=== PATIENT | female | born 1965 | race Caucasian/White ===

== ENCOUNTER 2023-05-11 06:47 | Outpatient (CLI) | payer OTHER, SELFPAY ==
--- NOTE | 2023-05-11 07:15 | MR_ITS ---
[address] [address] Phone:?[phone] Fax:?[phone] Referring Physician Information: WINSTON Jha [address] [facility] [address] Phone:?[phone] Fax:?[phone] Patient:Brenna Tucker D.O.B:?1965 Sex:?Female Phone:? [facility] MRN:[id number] Exam Date:?05/11/2023 EXAM: MRI of the LEFT KNEE, without contrast CLINICAL INFORMATION: Female, 57 years old, with medial left knee pain. INDICATION: Evaluate knee pain. PRIOR SURGERY: None reported. PLAIN FILMS: None available. COMPARISONS: No prior MRIs available. TECHNICAL INFORMATION: Using a 1.5T MR scanner and a localizing surface coil: sagittals: PD, PDFS coronals: PD, T2FS axials: PD, PDFS SEDATION: None CONTRAST: None FINDINGS: Knee joint: Effusion: Physiologic left knee effusion. Popliteal cyst: Tiny, unruptured popliteal (Slater's) cyst. Loose bodies: None. Subcutaneous and extra-articular soft tissues: Unremarkable. Ligaments: ACL: Mild thickening and abnormal signal is present throughout the ACL, without ACL tear (coronal STIR series 8 images 16-20). PCL: Intact PCL, without acute or chronic injury. MCL: Intact MCL superficial and deep layers, without injury. LCL: Intact LCL, without injury. Posterolateral corner: No posterolateral corner soft tissue injury. Popliteus, biceps femoris, iliotibial band, popliteofibular ligament and lateral gastrocnemius are intact. Posteromedial corner: No posteromedial corner soft tissue injury. Semimembranosus, pes anserine tendons and posterior oblique ligament are without injury, tendinopathy or bursitis. Extensor mechanism: Patellar tendon: Intact, without tendinopathy. Quadriceps tendon: Intact, without tendinopathy. Retinacula: Medial and lateral retinacula are intact. Fat pads: Moderate edema-like signal is present throughout the suprapatellar fat pad (sagittal PDFS series 6 images 15-21). Unremarkable femoral and infrapatellar Hoffa's fat pads. Medial compartment: Medial meniscus: No articular surface, meniscosynovial junction or root tear. No displacement, extrusion or parameniscal cyst. Medial femoral condyle: No chondromalacia or osteochondral abnormality. Medial tibial plateau: No chondromalacia or osteochondral abnormality. Lateral compartment: Lateral meniscus: No articular surface, meniscosynovial junction or root tear. No displacement, extrusion or parameniscal cyst. Lateral femoral condyle: No chondromalacia or osteochondral abnormality. Lateral tibial plateau: No chondromalacia or osteochondral abnormality. Patellofemoral joint: Patella: No chondromalacia or osteochondral abnormality. Trochlea: No chondromalacia or osteochondral abnormality. Proximal tibiofibular joint: Unremarkable, without evidence of ligament sprain injury, joint effusion or adjacent marrow edema. Bones: Moderate-marked edema is present in the periphery of the medial femoral condyle, without evidence of a fracture (sagittal PDFS series 6 image 9 and coronal STIR series 8 image 16). IMPRESSION: 1. Moderate-marked contusion versus low-grade stress changes involving the periphery of the medial femoral condyle, without evidence of a fracture. 2. Grade 1 sprain of the ACL. No cruciate or collateral ligament tear. 3. Tiny, unruptured popliteal (Slater's) cyst. No knee joint effusion. 4. No medial or lateral meniscal tear. 5. No PCL, MCL, or LCL sprain/tear. 6. No chondromalacia or osteochondral lesion/defect. BC Electronically signed on 05/11/2023 12:53:00 PM by Priyank Gunter M.D.
== END 2023-05-11 06:48 | disposition home or self-care (01) ==
PROVIDERS: PCP Family Medicine; Visit Provider Physician Assistant Surgical
DX: M25.562 Pain in left knee (principal); S83.512A Sprain of anterior cruciate ligament of left knee, initial encounter; S86.912A Strain of unspecified muscle(s) and tendon(s) at lower leg level, left leg, initial encounter
CPT/HCPCS: 73721

== ENCOUNTER 2023-05-25 15:15 | Outpatient (RCR) | payer OTHER, SELFPAY | END 2023-05-31 09:34 | disposition home or self-care (01) | PROVIDERS: PCP Family Medicine; Visit Provider Physician Assistant Surgical | DX: S76.112A Strain of left quadriceps muscle, fascia and tendon, initial encounter (principal); M25.562 Pain in left knee; R26.2 Difficulty in walking, not elsewhere classified; Z51.89 Encounter for other specified aftercare | CPT/HCPCS: 97110; 97161 ==

== ENCOUNTER 2023-08-10 08:53 | Outpatient (CLI) | payer OTHER, SELFPAY ==
--- NOTE | 2023-08-10 09:15 | FL_ITS ---
Patient: AMELIA IQBAL Facility:?[facility] Patient ID:?[id number] Site Patient ID:?[id number]. Site :?1965 Study:?XRay-Hip Right ARTHROGRAM (DR AMOS TO READ)-08/10/2023 10:29:04 AM Ordering Physician:WALLY Final Report: Indication: Right hip pain Procedure : Informed consent was obtained. The site was marked. Time-out was performed. The skin of the right hip was cleansed with ChloraPrep. A sterile drape was placed. 8 cc of 1 percent lidocaine was administered for superficial anesthesia. Subsequently a 22 gauge spinal needle was introduced into the right hip joint under intermittent fluoroscopic guidance. Injection of 2 cc nonionic Omnipaque 240 contrast confirmed intra-articular location. Subsequently 11 cc of dilute gadolinium were injected. The needle was removed and hemostasis achieved with direct pressure. A dressing was placed. The patient tolerated the procedure well without immediate complication and was immediately sent to MRI for imaging. Total fluoroscopy time 37 seconds. Impression: Successful fluoroscopically guided right hip arthrogram for MRI. Dictated by Sergei Amos MD @ 08/10/2023 10:45:43 AM Signed by:?Sergei Amos MD @08/10/2023 10:45:43 AM (Electronic Signature)
--- NOTE | 2023-08-10 10:15 | MR_ITS ---
[address] [address] Phone:?[phone] Fax:?[phone] Referring Physician Information: Dez Davis M.D. [address] [facility] [address] Phone:?[phone] Fax:?[phone] Patient:?Mariama Tucker D.O.B:?1965 Sex:?Female Phone:?[phone] [facility] MRN:?[id number] Exam Date:?08/10/2023 EXAM: MR ARTHROGRAM OF THE RIGHT HIP CLINICAL INFORMATION: The patient is a 58-year-old with right hip pain. PRIOR SURGERY: None reported. COMPARISON STUDIES: There are no prior studies available for comparison. TECHNICAL INFORMATION: Exam performed after fluoroscopically-guided gadolinium arthrography of the right hip joint at [facility], reported separately. Using a 1.5T MR scanner: 3.5 mm?coronals: PD, T2, T1FS 3.5 mm?sagittals: PD, T2, T1FS 3.0 mm?axial obliques: PD 4.0 mm?axials: T2FS 4.0 mm?coronals of pelvis: T1, STIR FINDINGS: Hip joint: Contrast material normally fills the right hip joint space. Articular Cartilage: The articular cartilage of the femoral head and acetabulum is preserved. No chondral defects or unstable chondral segments are identified. No intraarticular loose bodies are identified. Labrum: The acetabular labrum is intact. There is no evidence for paralabral ganglion cyst formation. Proximal femur: The bone marrow signal of the proximal femoral head, femoral neck and intertrochanteric region is normal in appearance without evidence of structural abnormality or lesion of abnormal signal intensity. There is no evidence of avascular necrosis, fracture or stress injury. No definite cam lesions are identified. There are no fibrocystic osseous lesions. Acetabulum: The acetabulum is intact and normal in appearance. There are no periacetabular ossicles or subcortical marrow edema. There is no definite retroversion or osseous over coverage. There are no definite abnormalities in acetabular morphology. The ligamentum teres is intact. Myotendinous Structures: The greater trochanteric attachments of the gluteus medius and gluteus minimus are normal. The common hamstring tendon origin is normal. The adductors and flexors appear unremarkable. Bursae: There is no evidence of iliopsoas, greater trochanteric or ischial bursal inflammation. Pelvic soft tissues: The soft tissues of the pelvis appear otherwise preserved. There is no evidence of soft tissue mass or adenopathy. No acute intrapelvic abnormalities are seen. Pelvic osseous structures: Large [id number] coronal survey images show no evidence of a pelvic fracture or demonstrable stress injury. The sacrum and SI joints appear normal. The symphysis pubis is normal in appearance. Lumbosacral junction: Degenerative disc dehydration of the lumbosacral junction can be seen. CONCLUSION: 1. No acute bony abnormalities of the right hip or pelvis can be seen. There is no evidence for stress injury. 2. No chondral defects along the weightbearing surfaces of the right hip are present. 3. No definite evidence for well-defined tearing of the right acetabular labrum can be seen. 4. No musculotendinous abnormalities about the right hip or pelvis are seen. 5. No abnormal bursal fluid collections are present. AEC Electronically signed on 08/13/2023 10:55:00 AM by Miguel Hyde M.D.
== END 2023-08-10 08:54 | disposition home or self-care (01) ==
LOC: RAD 08:54
PROVIDERS: PCP Family Medicine; Visit Provider Family Medicine
DX: M25.551 Pain in right hip (principal); M25.851 Other specified joint disorders, right hip; R10.31 Right lower quadrant pain
CPT/HCPCS: 27093; 73525; 73722; 77002; A9575; Q9966

== ENCOUNTER 2023-08-26 05:03 | Emergency (ER) | payer OTHER, SELFPAY ==
[2023-08-26 05:10] VITALS: BP 131/90; PULSE 68; RESP 18; TEMP 36.8; O2SAT 99; BMI 19.9
[2023-08-26 05:29] LABS: Appearance Urine Clear (Clear); Bilirubin Urine Negative (Negative); Blood Urine Negative (Negative); Color Urine Yellow (Yellow); Glucose Urine Negative (Negative); Ketones Urine Negative (Negative); Leukocyte Esterase Urine Negative (Negative); Nitrite Urine Negative (Negative); Protein Urine Negative (Negative); Specific Gravity Urine 1.015 (1.000-1.030); Urobilinogen Urine 0.2 (0.2-1.0)
[2023-08-26 05:34] LABS: RBC Urine 0-2 (0-2); WBC Urine 0-2 (0-5)
[2023-08-26 05:35] LABS: Squamous Epithelial Cell Urine Few (None-Few)
--- NOTE | 2023-08-26 05:37 | CT_ITS ---
Patient: AMELIA IQBAL Facility:?[facility] Patient ID:?[id number] Site Patient ID:?[id number]. Site :?1965 Study:?CT-Abdomen/Pelvis with 57cc isovue 370 contrast-08/26/2023 6:15:21 AM Ordering Physician:ari gaona Final Report: INDICATION: flank pain right < left TECHNIQUE: CT abdomen and pelvis with 57 cc Omnipaque 370 IV contrast. COMPARISON: None. FINDINGS: The liver is normal in size, shape and attenuation. Gallbladder and biliary tree are normal. The spleen, adrenal glands and pancreas are within normal limits. The kidneys are unremarkable. No hydronephrosis. No evidence of nephrolithiasis. However, partial opacification of the renal collecting system and ureters could obscure a small stone. Hyperdensities within the pelvis are likely phleboliths. No evidence of bowel obstruction. Large stool burden throughout the colon and rectum. The appendix appears unremarkable. No evidence of free air. Small volume nonspecific free fluid within the pelvis. No enlarged lymph nodes by size criteria. The uterus is visualized. Ovaries are obscured by loops of small bowel. The lower chest is unremarkable. IMPRESSION: 1. Large stool burden throughout the colon and rectum. 2. Small volume nonspecific free fluid within the pelvis. 3. Otherwise, no evidence of acute intra-abdominal/pelvic process. 4. No hydronephrosis. No evidence of nephrolithiasis. However, partial opacification of the renal collecting system and ureters could obscure a small stone. Hyperdensities within the pelvis are likely phleboliths. Please note that all CT scans at this facility use dose modulation, iterative reconstruction, and/or weight-based dosing when appropriate to reduce radiation dose to as low as reasonably achievable. Dictated by Rohan Cavazos MD @ 08/26/2023 7:36:36 AM Signed by:?Rohan Cavazos MD @08/26/2023 7:36:36 AM (Electronic Signature)
[2023-08-26] MEDS: ONDANSETRON 2 MG/ML inj 4 MG IVP (05:42)
--- NOTE | 2023-08-26 05:45 | ED.GENADULT ---
HPI - General Adult General Chief complaint: Flank Pain Stated complaint: Lower R back pain Source: patient Mode of arrival: ambulatory Limitations: no limitations History of Present Illness HPI narrative: 58-year-old female presents the emergency department with pain in the right flank area that radiates down to the right lower quadrant of the abdomen. Pain started actually about a week ago, she thought that she tweaked a muscle while she was working out it lasted a day or 2 when was mild and achy, she did not think much of it. 2 days ago, the pain returned and was initially achy but has gradually become more bothersome and at 9:00 p.m. last night became very bothersome, constant sharp in nature and is moving now more down toward the lower right back and still wrapping to the right lower quadrant/inguinal area. No fever, no injury or trauma. No hematuria, no dysuria. She had an evaluation for pelvic pain a few weeks ago by her primary care provider and a pelvic exam was performed per her report. She has been referred for a pelvic ultrasound which is scheduled for about 2 weeks from now. No pathology was found on exam. Patient states that she took some Tylenol Arthritis 1300 mg last night at about 930 or 10:00 p.m. and also 600 mg of ibuprofen at the same time. It did lessen the pain but it has since come back. No diarrhea, no bloody stools. She did have an episode of nausea when she went up to urinate at home this morning but no teresa vomiting. No prior history of similar symptoms, no prior history of kidney stones. No gynecological changes. No numbness or sensory changes to the skin. No rash. No prior history of abdominal surgeries. Past medical history notable for acne for which she takes spironolactone 150 mg once daily. She uses they will cycle of ear p.r.n. for cold sores but has not used recently. She has also recently been prescribed vaginal estrogen supplement which she has not yet started. She is a nonsmoker, no allergies. ROS is notable for the abdominal and GI symptoms as described above only, otherwise denies times 12 systems. Related Data Home Medications Medication Instructions Recorded Confirmed valacyclovir 1 gram tablet 1,000 mg PO BID PRN 05/01/23 08/26/23 estradiol 0.01% (0.1 mg/gram) 1 applic vaginal DIRECTED 08/26/23 08/26/23 vaginal cream Previous Rx's Medication Instructions Recorded spironolactone 50 mg tablet 50 mg PO TID #270 tabs 04/12/23 Allergies Allergy/AdvReac Type Severity Reaction Status Date / Time No Known Drug Allergies Allergy Verified 08/26/23 05:16 PFSH PFS Surgical History History of tonsillectomy (1977) ?Z90.89 - Acquired absence of other organs (ICD-10) Family History Mother Breast cancer Paternal Grandfather Heart disease Father High blood pressure Daughter Von Willebrand disease, Onset Age: 18 Anxiety, Onset Age: 15 Social History Smoking Status: Never smoker Do you use any of these nicotine containing products: None Second hand tobacco smoke exposure: No How often do you have a drink containing alcohol: never AUDIT-C Alcohol total score: 0 Non-prescribed substance use: denies use Exam Const: Vital Signs, click to edit/add: Vital Signs - 24 hr 08/26/23 05:10 08/26/23 05:46 Temperature 98.2 F 98.2 F Pulse Rate [Right Pulse Oximeter] 68 Respiratory Rate 18 Blood Pressure [Ri ght Upper Arm] 131/90 H Pulse Oximetry 99 Oxygen Delivery Me thod Room Air Documenting provider has reviewed patient's vital signs: yes Common normals: no apparent distress General appearance: cooperative and well kempt HENMT: Common normals: normocephalic Head and scalp: normocephalic Mouth: oral and palatal mucosa normal Throat: posterior oropharynx normal Eye: Common normals: conjunctivae normal General eye: normal appearance of both eyes Conjunctiva: conjunctiva(e) normal Neck & C-Spine: Common normals: no lymphadenopathy General: normal visual inspection Resp: Common normals: normal respiratory effort, no use of accessory muscles and clear to auscultation bilaterally Effort & inspection: able to speak in complete sentences Auscultation: clear to auscultation bilaterally Cardio: Common normals: regular rate, regular rhythm, S1 normal heart sound, S2 normal heart sound and no murmurs Rate: regular rate Rhythm: regular rhythm Heart sounds: S1 normal and S2 normal GI: Common normals: Normal to inspection, nondistended, normoactive bowel sounds present, soft to palpation, no hepatosplenomegaly and no masses Palpation: soft and no hepatosplenomegaly Other: Mildly diffusely tender to abdominal palpation but it does not really localize. Certainly no rebound tenderness or guarding. : Common normals: no CVA tenderness Bladder/kidney exam: no CVA tenderness Back & Pelvis: Common normals: no CVA tenderness, thoracic and lumbar spine normal to inspection and no thoracic nor lumbar tenderness Extremity: Common normals: normal to inspection and normal capillary refill Psych: Appearance: well kempt Attitude: engaged Activity/motor behavior: appropriate eye contact Mood and affect: euthymic mood Insight: insight good Judgement: judgment good Skin: Common normals: no rashes or lesions noted General skin exam: no rashes or lesions noted Course Course ED Course: Right flank and right lower abdominal pain. Differential diagnosis including kidney stone, appendicitis, pyelonephritis, colitis, ovarian pathology, gastroenteritis, musculoskeletal etiology, radiculopathy, hernia, amongst others. No rash to indicate shingles. Urinalysis does not show any blood which I was surprised by as I was expecting some if this were a stone. Recommend CT scan of the abdomen and pelvis since her pain is escalating, basic labs. Toradol and Zofran for symptom control while we await CT findings. Reevaluation(s) Time of Reevaluation #1: 07:54 Reevaluation #1: Counseled patient on imaging and lab findings. Labs perfectly reassuring, imaging suspicious for constipation. I do think that this could certainly explain her symptoms or she may have a combination of a mild musculoskeletal problem and the constipation. Patient will be given 2 senna and a dose of MiraLax here in the ED. Counseled on repeating the MiraLax every 8 hours until she has 2 loose stools, then decreasing to MiraLax half dose every other day for ongoing maintenance. She may continue her fiber supplement that she is already using. If she has not had good relief after 8 doses of MiraLax, she should contact her primary care team for further guidance. Counseled to expect some cramping. Okay to use Tylenol and ibuprofen. Alarm symptoms such is high fever, vomiting or severe focal pain would not be expected and should be re-evaluated. She will keep her appointment for her pelvic ultrasound next week as is scheduled. All questions answered, see written instructions. Vital Signs Vital signs: Initial Vital Signs Temperature 98.2 F 08/26/23 05:10 Temperature Source Temporal Artery Scan 08/26/23 05:10 Pulse Rate 68 08/26/23 05:10 Respiratory Rate 18 08/26/23 05:10 Blood Pressure 131/90 H 08/26/23 05:10 Blood Pressure Mean 103 08/26/23 05:10 Blood Pressure Position Sitting 08/26/23 05:10 Pulse Oximetry 99 08/26/23 05:10 Oxygen Delivery Method Room Air 08/26/23 05:10 Vital Signs Temperature 98.2 F 08/26/23 05:10 Pulse Rate 68 08/26/23 05:10 Respiratory Rate 18 08/26/23 05:10 Blood Pressure 131/90 H 08/26/23 05:10 Pulse Oximetry 99 08/26/23 05:10 Oxygen Delivery Method Room Air 08/26/23 05:10 Temperature 98.2 F 08/26/23 05:46 Pulse Rate 68 08/26/23 05:10 Respiratory Rate 18 08/26/23 05:10 Blood Pressure 131/90 H 08/26/23 05:10 Pulse Oximetry 99 08/26/23 05:10 Oxygen Delivery Method Room Air 08/26/23 05:10 Medications Administered Medications: Discontinued Medications Generic Name Dose Route Start Last Admin Trade Name Freq PRN Reason Stop Dose Admin Ketorolac Tromethamine 15 mg 08/26/23 05:37 08/26/23 05:46 Ketorolac 15 Mg/Ml Inj IVP 08/26/23 05:38 15 mg ONCE ONE Administration Ondansetron HCl 4 mg 08/26/23 05:37 08/26/23 05:42 Ondansetron 2 Mg/Ml Inj IVP 08/26/23 05:38 4 mg ONCE ONE Administration Medical Decision Making Lab Data Lab results reviewed: Yes I reviewed the patient's lab results Lab results narrative: All reassuring. Labs: Lab Results 08/26/23 08/26/23 Range/Units 05:09 05:37 WBC 6.09 (4.50-11.00) K/uL RBC 4.29 (4.00-5.20) m/uL Hgb 13.2 (12.0-16.0) gm/dL Hct 38.9 (33.0-51.0) % MCV 91 (80-100) fL MCH 31 (26-34) pg MCHC 34 (32-36) gm/dL RDW Coeff of Richard 11.8 (11.5-15.5) % Plt Count 277 (140-440) K/uL Neut % (Auto) 58.4 (42.0-72.0) % Lymph % (Auto) 32.2 (20-44) % [place] % (Auto) 7.4 (0.0-11.0) % Eos % (Auto) 1.1 (0.0-7.0) % Baso % (Auto) 0.2 (0.0-3.0) % Neut # (Auto) 3.56 (1.7-7.0) K/uL Lymph # (Auto) 1.96 (0.90-2.90) K/uL [place] # (Auto) 0.50 (0.00-0.90) K/UL Eos # (Auto) 0.07 (0.00-0.50) K/uL Baso # (Auto) 0.01 (0.00-0.30) K/uL Abs Immat Gran (auto) 0.04 (0.00-0.30) K/uL Imm/Tot Granulo (auto) 0.7 % Sodium 136 (135-149) mmol/L Potassium 3.7 (3.6-5.1) mmol/L Chloride 105 (96-114) mmol/L Carbon Dioxide 27 (20-32) mmol/L Anion Gap 4 L (7-15) mEq/L BUN 12 (7-30) mg/dL Creatinine 0.7 (0.5-1.5) mg/dL Estimated Creat Clear 74.54 Estimated GFR 101 ml/min Glucose 97 (60-115) mg/dL Lactate 0.9 (0.5-1.9) mmol/L Calcium 9.3 (8.4-10.6) mg/dL Total Bilirubin 0.9 (0.1-1.5) mg/dL AST 22 (12-35) U/L ALT 15 (4-35) U/L Alkaline Phosphatase 53 (40-150) U/L C-Reactive Protein < 0.5 L (0.5-1.0) mg/dL Total Protein 6.8 (6.0-8.3) g/dL Albumin 4.1 (3.3-5.0) g/dL Lipase 114 (23-300) U/L Urine Color Yellow (Yellow) Urine Appearance Clear (Clear) Urine pH 6.0 (5.0-8.5) Ur Specific [place] 1.015 (1.000-1.030) Urine Protein Negative (Negative) Urine Glucose (UA) Negative (Negative) Urine Ketones Negative (Negative) Urine Blood Negative (Negative) Urine Nitrite Negative (Negative) Urine Bilirubin Negative (Negative) Urine Urobilinogen 0.2 (0.2-1.0) Ur Leukocyte Esterase Negative (Negative) Urine RBC 0-2 (0-2) Urine WBC 0-2 (0-5) Ur Squamous Epith Cells Few (None-Few) Urine Bacteria None (None) Imaging Data CT scan - abdomen: Attestation: I have reviewed the pertinent imaging results. My impression: Constipation but no free air or stone. Difficult to see the ovaries very well due to the constipation. I think the calcifications are fecalith and not pelvic stones. Radiologist's impression: IMPRESSION: 1. Large stool burden throughout the colon and rectum. 2. Small volume nonspecific free fluid within the pelvis. 3. Otherwise, no evidence of acute intra-abdominal/pelvic process. 4. No hydronephrosis. No evidence of nephrolithiasis. However, partial opacification of the renal collecting system and ureters could obscure a small stone. Hyperdensities within the pelvis are likely phleboliths. Discharge Plan Discharge Clinical Impression: Constipation Patient Disposition: Home w/ Parent or Adult Condition: Stable Instructions: Constipation (DC) Additional Instructions: As we discussed, I think that your abdominal pain is mostly caused by acute on chronic constipation. Your labs do not show any signs of infection, inflammation, organ dysfunction or other abnormality. This is great news. We have given you a dose of senna and some MiraLax here in the emergency department. He will continue taking 17 g which is a standard dose of MiraLax every 8 hours until you have two soft/loose stools. If you are still having hard stools, continue the MiraLax. Once you have had your 2 soft stools, you may continue having more loose stools due to the delayed effect with the medication, but. The heavy dosing of the MiraLax at that time. Because of your chronic symptoms, I would recommend that you do a half dose of MiraLax 3 days per week for ongoing maintenance. You may continue this with your fiber supplement. These 2 products work differently and can be quite complementary. It may take a couple of days before you start to get relief. It is okay to use Tylenol and or ibuprofen to help with her discomfort. Unfortunately, there will be quite a bit of cramping through this process. If you have high fevers, persistent vomiting, bloody stools or other signs of worsening, you should come back to the emergency department. If you have taken 8 doses of the MiraLax and have still not had any stool movement, please call your primary care provider for further instruction. I would like for you to keep the appointment for the pelvic ultrasound as scheduled. Thankfully, we will get a much better test once your stools are well cleaned out. MiraLax is available for purchase at any grocery store or pharmacy. The generic equivalents are just as good. I would recommend the bottle over the packet, as you will be transitioning to half doses within a few days. Remember that the medication dissolves much more easily in a warm beverage. Activity Level: Activity as Tolerated Discharge Diet: Regular Prescriptions: No Action valacyclovir 1 gram tablet 1,000 mg PO BID PRN estradiol 0.01 % (0.1 mg/gram) cream 1 applic vaginal DIRECTED spironolactone 50 mg tablet 50 mg PO TID Qty: 270 0RF Follow Up/Referrals: Krissy Torres DO [Primary Care Provider] - Stand Alone Forms: Application Craft Info Instructions
[2023-08-26 05:46] VITALS: TEMP 36.8
[2023-08-26] MEDS: KETOROLAC 15 MG/ML inj IVP (05:46)
[2023-08-26 05:53] LABS: Lactate* 0.9 mmol/L (0.5-1.9)
[2023-08-26 06:07] LABS: Albumin* 4.1 g/dL (3.3-5.0); Chloride* 105 mmol/L (96-114); Potassium* 3.7 mmol/L (3.6-5.1); Sodium* 136 mmol/L (135-149)
[2023-08-26 06:08] LABS: Basophils Absolute Auto 0.01 K/uL (0.00-0.30); Basophils Percent Auto 0.2 % (0.0-3.0); Eosinophils Absolute Auto 0.07 K/uL (0.00-0.50); Eosinophils Percent Auto 1.1 % (0.0-7.0); Hematocrit 38.9 % (33.0-51.0); Hemoglobin* 13.2 gm/dL (12.0-16.0); Immature Granulocytes Abs Auto 0.04 K/uL (0.00-0.30); Immature Granulocytes Pct Auto 0.7 %; Lymphocytes Absolute Auto 1.96 K/uL (0.90-2.90); Lymphocytes Percent Auto 32.2 % (20-44); Mean Corpuscular HGB Conc 34 gm/dL (32-36); Mean Corpuscular Hemoglobin 31 pg (26-34); Mean Corpuscular Volume 91 fL (80-100); Monocytes Percent Auto 7.4 % (0.0-11.0); Neutrophils Absolute Auto 3.56 K/uL (1.7-7.0); Neutrophils Percent Auto 58.4 % (42.0-72.0); Platelet Count* 277 K/uL (140-440); RDW Coefficient of Variation % 11.8 % (11.5-15.5); Red Blood Count 4.29 m/uL (4.00-5.20); White Blood Count* 6.09 K/uL (4.50-11.00)
[2023-08-26 06:09] LABS: Creatinine* 0.7 mg/dL (0.5-1.5); Est. Creatinine Clearance* 74.54; Estimated Glomerular Filt Rate 101 ml/min
[2023-08-26 06:10] LABS: Alanine Aminotransferase* 15 U/L (4-35); Alkaline Phosphatase* 53 U/L (40-150); Anion Gap 4 mEq/L (7-15); Aspartate Amino Transferase* 22 U/L (12-35); Bilirubin Total* 0.9 mg/dL (0.1-1.5); Blood Urea Nitrogen* 12 mg/dL (7-30); Calcium* 9.3 mg/dL (8.4-10.6); Carbon Dioxide* 27 mmol/L (20-32); Glucose* 97 mg/dL (60-115); Lipase* 114 U/L (23-300); Total Protein* 6.8 g/dL (6.0-8.3)
[2023-08-26 06:11] LABS: Slide Review Reflex No
[2023-08-26 06:42] LABS: C Reactive Protein* < 0.5 mg/dL (0.5-1.0)
[2023-08-26 08:16] VITALS: BP 128/84; PULSE 68; RESP 18; O2SAT 98
[2023-08-26] MEDS: SENNOSIDES/DOCUSATE TABLET 2 TAB PO (08:18)
[2023-08-26] MEDS: polyethylene glycoL 3350 17 GM PACK PO (08:18)
== END 2023-08-26 08:18 | disposition home or self-care (01) ==
PROVIDERS: Emergency Provider Family Medicine; PCP Family Medicine
DX: K59.00 Constipation, unspecified (principal)
CPT/HCPCS: 36415; 74177; 80053; 81001; 83605; 83690; 85025; 86140; 99284; A9270; J1885; J2405; Q9967

== ENCOUNTER 2024-08-05 15:15 | Outpatient (RCR) | payer BC, OTHER, SELFPAY | END 2024-12-03 23:59 | disposition home or self-care (01) | PROVIDERS: PCP Family Medicine; Visit Provider Student in an Organized Health Care Education/Training Program | DX: M25.512 Pain in left shoulder (principal); Z51.89 Encounter for other specified aftercare | CPT/HCPCS: 97110; 97140; 97161 ==